=== PATIENT | male | born 1990 | race Caucasian/White ===

== ENCOUNTER 2024-01-30 12:12 | Emergency (ER) | payer OTHER ==
[2024-01-30] MEDS: Acetaminophen 500 MG Tab PO ONE (12:48)
[2024-01-30] MEDS: guaiFENesin 600 MG Tab.ER PO ONE (12:51)
== END 2024-01-30 13:36 | disposition home or self-care (01) ==
LOC: LB.ED 12:12
DX: U07.1 COVID-19 (principal); Z79.899 Other long term (current) drug therapy; Z88.1 Allergy status to other antibiotic agents; Z88.6 Allergy status to analgesic agent
CPT/HCPCS: 99283; 99284; A9270-GY; U0002

== ENCOUNTER 2024-02-25 03:40 | Observation (INO) | payer OTHER ==
[2024-02-25] MEDS ORDERED: Sodium Chloride 0.9% 10 ML Syringe FLUSH PRN (04:12)
[2024-02-25] MEDS: Sodium Chloride 0.9% 1,000 ML IV SCH (04:20)
[2024-02-25] MEDS: Ondansetron 4 MG/2 ML SDV IVPUSH ONE ×2 (04:20→06:59)
[2024-02-25] MEDS: Ondansetron 4 MG/2 ML SDV ONE ×2 (04:33→07:29)
[2024-02-25] MEDS: GI Cocktail Oral Solution 30 ML PO ONE ×2 (04:36→13:45)
[2024-02-25 04:56] LABS: HEMATOCRIT 40.8 % (40.0-54.0); HEMOGLOBIN 13.5 g/dL (13.0-18.0); MEAN CORPUSCULAR HEMOGLOBIN 29.9 pg (27.0-32.0); MEAN CORPUSCULAR HGB CONC 33.1 g/dL (31.0-35.0); MEAN PLATELET VOLUME 9.3 fL (6.0-10.0); RED BLOOD CELL COUNT 4.51 M/uL (4.50-6.50); RED CELL DISTRIBUTION WIDTH 12.8 % (11.0-16.0)
[2024-02-25 05:10] LABS: ALBUMIN 3.8 g/dL (3.4-5.0); ANION GAP 13.9 mmol/L (5.0-15.0); BILIRUBIN TOTAL 0.3 mg/dL (0.0-1.0); BUN/CREATININE RATIO 12.1 (6-25); CALCIUM 9.1 mg/dL (8.5-10.1); CARBON DIOXIDE,CO2 30.2 mmol/L (21.0-32.0); CREATININE 1.07 mg/dL (0.70-1.30); EST CRCL DRUG DOSING (CG) 89.44 mL/min; POTASSIUM,K 4.1 mmol/L (3.5-5.1); PROTEIN TOTAL,TP 7.7 g/dL (6.4-8.2); WHITE BLOOD CELL COUNT,WBC 20.2 K/uL (4.0-11.0)
[2024-02-25] MEDS ORDERED: Iopamidol 612 MG/ML 100 ML Bottle IV PRN (05:59)
[2024-02-25] MEDS: Iopamidol 612 MG/ML 100 ML Bottle IV PRN (06:00)
[2024-02-25] MEDS ORDERED: Sodium Chloride 0.9% 50 ML SDV FLUSH SCH (06:00)
[2024-02-25] MEDS: Sodium Chloride 0.9% 50 ML SDV FLUSH SCH (06:00)
[2024-02-25] MEDS: Piperacillin/Tazobactam 4.5 GM in Sodium Chloride 0.9% 100 ML IV ONE (07:14)
[2024-02-25] MEDS: Lactated Ringers 1,000 ML IV SCH (07:15)
[2024-02-25] MEDS ORDERED: Morphine 4 MG/ML VIAL IVPUSH PRN (08:24)
[2024-02-25] MEDS: Piperacillin/Tazobactam 4.5 GM in Sodium Chloride 0.9% 100 ML IV SCH (10:31)
[2024-02-25] MEDS: Acetaminophen 325 MG Tab PO PRN (11:21)
[2024-02-25] MEDS: Ondansetron 4 MG Tab.DIS PO ONE ×2 (13:13→17:55)
[2024-02-25 14:01] LABS: HEMATOCRIT 42.3 % (40.0-54.0); HEMOGLOBIN 14.2 g/dL (13.0-18.0); MEAN CORPUSCULAR HEMOGLOBIN 30.1 pg (27.0-32.0); MEAN CORPUSCULAR HGB CONC 33.6 g/dL (31.0-35.0); MEAN PLATELET VOLUME 8.8 fL (6.0-10.0); RED BLOOD CELL COUNT 4.72 M/uL (4.50-6.50); RED CELL DISTRIBUTION WIDTH 12.9 % (11.0-16.0); WHITE BLOOD CELL COUNT,WBC 13.9 K/uL (4.0-11.0)
[2024-02-25 15:36] LABS: APPEARANCE,URINE CLEAR (CLEAR); BILIRUBIN,URINE NEGATIVE (NEGATIVE); COLOR,URINE YELLOW; GLUCOSE,URINE NEGATIVE (NEGATIVE); KETONES,URINE NEGATIVE (NEGATIVE); LEUKOCYTE ESTERASE,URINE NEGATIVE (NEGATIVE); NITRITE,URINE NEGATIVE (NEGATIVE); OCCULT BLOOD,URINE NEGATIVE (NEGATIVE); PH,URINE 8.5 (5.0-8.0); PROTEIN,URINE 30 mg/dL (NEGATIVE); UROBILINOGEN,URINE 0.2 E.U./dL (0.2-1.0)
[2024-02-25] MEDS: metroNIDAZOLE 500 MG Tab PO SCH (15:37)
[2024-02-25 15:39] LABS: RBC,URINE 0-5 /HPF; WBC,URINE 0-5 /HPF
[2024-02-25] MEDS: diazePAM 5 MG/ML MDV ONE (17:28)
[2024-02-25] MEDS: Levofloxacin 500 MG Tab PO ONE (17:55)
== END 2024-02-25 18:10 | disposition home or self-care (01) ==
LOC: LB.ED 03:40 → MERGE 09:00 → LB.MS 09:00
PROVIDERS: ADMIT Surgery; ATTEND Surgery
DX: K52.9 Noninfective gastroenteritis and colitis, unspecified (principal); Z88.1 Allergy status to other antibiotic agents; Z88.8 Allergy status to other drugs, medicaments and biological substances
CPT/HCPCS: 36415; 74177; 80053; 81001; 83605; 83690; 85027; A9270; J2405; J2543; J3360; J3490; J7030; J7120; Q0162; Q9967; 96361; 96365; 96375; 96376; 99235; 99285-25; G0378

== ENCOUNTER 2024-02-27 22:03 | Emergency (ER) | payer OTHER ==
[2024-02-27 22:33] LABS: BASOPHILS ABSOLUTE AUTO 0.03 K/uL (0.02-0.10); BASOPHILS PERCENT AUTO 0.3 % (0.0-0.5); EOSINOPHILS PERCENT AUTO 1.9 % (1.0-5.0); HEMATOCRIT 40.5 % (40.0-54.0); HEMOGLOBIN 13.8 g/dL (13.0-18.0); LYMPHOCYTES PERCENT AUTO 34.4 % (20.0-40.0); MEAN CORPUSCULAR HEMOGLOBIN 30.3 pg (27.0-32.0); MEAN CORPUSCULAR HGB CONC 34.1 g/dL (31.0-35.0); MEAN CORPUSCULAR VOLUME 89 fL (76-96); MEAN PLATELET VOLUME 9.1 fL (6.0-10.0); MONOCYTES ABSOLUTE AUTO 0.69 K/uL (0.20-0.80); MONOCYTES PERCENT AUTO 6.6 % (3.0-10.0); NEUTROPHILS ABSOLUTE AUTO 5.96 K/uL (2.00-7.50); NEUTROPHILS PERCENT AUTO 56.8 % (45.0-70.0); PLATELET COUNT,PLT 335 K/uL (150-400); RED BLOOD CELL COUNT 4.55 M/uL (4.50-6.50); RED CELL DISTRIBUTION WIDTH 12.8 % (11.0-16.0); WHITE BLOOD CELL COUNT,WBC 10.5 K/uL (4.0-11.0)
[2024-02-27 22:35] LABS: APPEARANCE,URINE CLEAR (CLEAR); BILIRUBIN,URINE SMALL (NEGATIVE); COLOR,URINE YELLOW; GLUCOSE,URINE NEGATIVE (NEGATIVE); KETONES,URINE 15 mg/dL (NEGATIVE); LEUKOCYTE ESTERASE,URINE TRACE (NEGATIVE); NITRITE,URINE NEGATIVE (NEGATIVE); OCCULT BLOOD,URINE NEGATIVE (NEGATIVE); PH,URINE 5.5 (5.0-8.0); PROTEIN,URINE NEGATIVE (NEGATIVE); UROBILINOGEN,URINE 0.2 E.U./dL (0.2-1.0)
[2024-02-27 22:38] LABS: RBC,URINE 0-5 /HPF; WBC,URINE 0-5 /HPF
[2024-02-27 22:39] LABS: CALCIUM OXALATE CRYSTALS,URINE RARE /HPF
[2024-02-27 22:52] LABS: ALBUMIN 3.4 g/dL (3.4-5.0); ANION GAP 12.9 mmol/L (5.0-15.0); BILIRUBIN TOTAL 0.6 mg/dL (0.0-1.0); BUN/CREATININE RATIO 12.5 (6-25); CALCIUM 8.7 mg/dL (8.5-10.1); CARBON DIOXIDE,CO2 29.6 mmol/L (21.0-32.0); CREATININE 1.04 mg/dL (0.70-1.30); EST CRCL DRUG DOSING (CG) 92.02 mL/min; MAGNESIUM 1.8 mg/dL (1.8-2.4); PHOSPHORUS 2.8 mg/dL (2.5-4.9); POTASSIUM,K 3.5 mmol/L (3.5-5.1); PROTEIN TOTAL,TP 6.8 g/dL (6.4-8.2)
== END 2024-02-28 00:20 | disposition home or self-care (01) ==
LOC: LB.ED 22:03
DX: K52.9 Noninfective gastroenteritis and colitis, unspecified (principal); J44.9 Chronic obstructive pulmonary disease, unspecified; Z88.1 Allergy status to other antibiotic agents; Z88.5 Allergy status to narcotic agent; Z79.899 Other long term (current) drug therapy
CPT/HCPCS: 36415; 74176; 80053; 81001; 83735; 84100; 85025; 99284

== ENCOUNTER 2024-06-12 12:33 | Emergency (ER) | payer OTHER, MEDICAID | END 2024-06-12 13:40 | disposition home or self-care (01) | LOC: LB.ED 12:33 | DX: S39.012A Strain of muscle, fascia and tendon of lower back, initial encounter (principal); J44.9 Chronic obstructive pulmonary disease, unspecified; K21.9 Gastro-esophageal reflux disease without esophagitis; E66.9 Obesity, unspecified; Z79.899 Other long term (current) drug therapy; Z88.5 Allergy status to narcotic agent; Z68.32 Body mass index [BMI] 32.0-32.9, adult; Z88.1 Allergy status to other antibiotic agents; W00.0XXA Fall on same level due to ice and snow, initial encounter | CPT/HCPCS: 72100; 99283 ==

== ENCOUNTER 2024-07-18 19:01 | Emergency (ER) | payer MEDICAID, OTHER ==
[2024-07-18] MEDS: Ondansetron 4 MG Tab.DIS PO ONE (19:58)
[2024-07-18 20:40] LABS: INFLUENZA A NAA POSITIVE (NEGATIVE); INFLUENZA B NAA NEGATIVE (NEGATIVE); RESPIRATORY SYNCYTIAL VIR NAA NEGATIVE (NEGATIVE)
[2024-07-18 20:42] LABS: CORONAVIRUS COVID-19 NAA NEGATIVE (NEGATIVE)
== END 2024-07-18 21:45 | disposition home or self-care (01) ==
LOC: LB.ED 19:01
DX: J10.1 Influenza due to other identified influenza virus with other respiratory manifestations (principal); J44.9 Chronic obstructive pulmonary disease, unspecified; E66.9 Obesity, unspecified; Z68.31 Body mass index [BMI] 31.0-31.9, adult; Z88.5 Allergy status to narcotic agent; Z88.1 Allergy status to other antibiotic agents; Z88.8 Allergy status to other drugs, medicaments and biological substances; Z79.899 Other long term (current) drug therapy
CPT/HCPCS: 0241U; 99284; Q0162; 99283